=== PATIENT | female | born 1965 | race African-American/Black ===

== ENCOUNTER 2020-05-31 08:39 | Outpatient (REF) | payer OTHER, SELFPAY | END 2020-05-31 08:40 | disposition home or self-care (01) | LOC: HO.LAB 08:39 | PROVIDERS: Visit Provider Internal Medicine | DX: Z20.828 Contact with and (suspected) exposure to other viral communicable diseases (principal) | CPT/HCPCS: U0003 ==

== ENCOUNTER → 2020-09-15 14:52 | Outpatient (BNVA) | payer OTHER, SELFPAY | PROVIDERS: PCP Internal Medicine; Visit Provider Advanced Practice Midwife ==

== ENCOUNTER 2020-12-01 15:15 | Outpatient (REF) | payer OTHER, SELFPAY ==
--- NOTE | ~2020-12-01 | MM_ITS ---
EXAMINATION: MM SCREENING DIGITAL BREAST TOMOSYNTHESIS, BILATERAL CLINICAL INFORMATION: Screening. Asymptomatic. The lifetime risk of breast cancer based on the Tyrer-Cuzick Model is 6%. COMPARISON: Mammography: 06/10/2018, 12/26/2016, 10/24/2015 TECHNIQUE: Digital breast tomosynthesis is performed in both the craniocaudal and mediolateral oblique views along with computer-aided detection (CAD). Synthesized 2D images are generated from the tomosynthesis. FINDINGS: There are scattered areas of fibroglandular density (ACR BI-RADS breast composition Category b). There are no significant masses, abnormal calcifications, or other abnormalities. Parenchymal pattern is similar to prior studies. No significant changes. MM/MM tomosynthesis screening BI IMPRESSION: No mammographic evidence of malignancy. ASSESSMENT: BI-RADS 1: Negative RECOMMENDATION: Routine annual mammography screening. This patient's information was entered into a reminder system with a target due date for their next mammogram.
== END 2020-12-01 15:16 | disposition home or self-care (01) ==
LOC: HO.MAMMO 15:15
PROVIDERS: Absent Provider Nurse Practitioner Family; PCP Internal Medicine; Visit Provider Internal Medicine
DX: Z12.31 Encounter for screening mammogram for malignant neoplasm of breast (principal); E78.00 Pure hypercholesterolemia, unspecified; M79.622 Pain in left upper arm
CPT/HCPCS: 36415; 77063; 77067

== ENCOUNTER 2021-03-20 09:24 | Outpatient (REF) | payer OTHER, SELFPAY ==
[2021-03-20 10:53] LABS: Hematocrit 33.4 % (37-47); Mean Corpuscular HGB Conc 32.9 g/dl (31.0-35.0); Mean Corpuscular Hemoglobin 32.2 pg (27.0-33.0); Mean Corpuscular Volume 97.7 fL (80-98); Mean Platelet Volume 9.2 fL (9.4-12.3); Platelet Count 316 X10*3/uL (160-400); Red Blood Count 3.42 X10*6/uL (4.20-5.50); Red Cell Distribution Width 13.2 % (11.0-16.0); White Blood Count 6.4 X10*3/uL (4.8-10.8)
[2021-03-20 11:14] LABS: Alanine Aminotransferase 22 U/L (0-31); Albumin Level 4.2 g/dL (3.5-5.0); Alkaline Phosphatase 76 U/L (39-117); Anion Gap 16 (12-20); Aspartate Amino Transferase 28 U/L (5-31); Bilirubin Total 0.3 mg/dL (0.0-1.0); Blood Urea Nitrogen 13 mg/dL (9-16); Carbon Dioxide 21 mmol/L (22-29); Chloride 108 mmol/L (96-108); Cholesterol 275 mg/dL; Estimated Glomerular Filt Rate > 60; Glucose Fasting 93 mg/dL (60-99); HDL Cholesterol 64 mg/dL; Potassium 4.3 mmol/L (3.3-5.1); Sodium 141 mmol/L (135-145); Triglycerides 401 mg/dL
[2021-03-20 11:34] LABS: TSH reflex Free T4 0.58 uIU/mL (0.32-4.0)
== END 2021-03-20 09:25 | disposition home or self-care (01) ==
LOC: HO.LAB 09:24
PROVIDERS: PCP Internal Medicine; Visit Provider Physician Assistant
DX: I10 Essential (primary) hypertension (principal); E66.09 Other obesity due to excess calories; Z68.30 Body mass index [BMI] 30.0-30.9, adult
CPT/HCPCS: 36415; 80053; 80061; 84443; 85027

== ENCOUNTER 2021-04-25 | Outpatient (REF) | payer OTHER, SELFPAY | END 2021-04-25 00:01 | disposition home or self-care (01) | LOC: HO.LNP | PROVIDERS: Visit Provider Physician Assistant Medical | DX: Z20.822 Contact with and (suspected) exposure to COVID-19 (principal); R05 Cough; J44.1 Chronic obstructive pulmonary disease with (acute) exacerbation | CPT/HCPCS: U0003; U0005 ==

== ENCOUNTER 2021-04-25 15:39 | Outpatient (REF) | payer OTHER, SELFPAY ==
--- NOTE | ~2021-04-25 | XR_ITS ---
EXAMINATION: XR CHEST CLINICAL INFORMATION: COPD COMPARISON: Previous chest x-ray May 2017 TECHNIQUE: 2 views of the chest were obtained. FINDINGS: The cardiac and mediastinal contours are stable. The lungs are clear. There is no pleural effusion or pneumothorax. There is mild thoracolumbar scoliosis and degenerative changes of the spine. XR/XR chest 2V IMPRESSION: No evidence for acute disease in the chest.
== END 2021-04-25 15:40 | disposition home or self-care (01) ==
LOC: HO.HMGCX 15:39
PROVIDERS: PCP Internal Medicine; Visit Provider Internal Medicine
DX: Z13.89 Encounter for screening for other disorder (principal)
CPT/HCPCS: 71046

== ENCOUNTER → 2021-05-01 15:18 | Outpatient (BNVA) | payer OTHER, SELFPAY | PROVIDERS: PCP Internal Medicine; Visit Provider Internal Medicine | DX: G47.33 Obstructive sleep apnea (adult) (pediatric) (principal); J44.1 Chronic obstructive pulmonary disease with (acute) exacerbation; F17.200 Nicotine dependence, unspecified, uncomplicated | CPT/HCPCS: 99212 ==

== ENCOUNTER 2021-05-07 07:15 | Emergency (ER) | payer OTHER, SELFPAY ==
--- NOTE | ~2021-05-07 | CT_ITS ---
EXAMINATION: CT ABDOMEN AND PELVIS WITH CONTRAST CLINICAL INFORMATION: Left lower quadrant pain COMPARISON: None TECHNIQUE: Multidetector volumetric images were obtained from the superior aspect of the liver through the pubic symphysis following administration 85 mL of Omnipaque 350 intravenous contrast. Sagittal and coronal reformatted images were obtained on the technologist's workstation. Oral contrast: No This CT examination was performed using dose optimization techniques as appropriate, variously including the following: *Automated exposure control *Adjustment of mA and/or kV according to patient size (this includes techniques or standardized protocols for targeted exams where dose is matched to indication/reason for exam; i.e. extremities or head) *Use of iterative reconstruction technique DLP: 514 mGy-cm FINDINGS: LUNG BASES: There is minimal bilateral lower lobe atelectasis and/or scarring. Nonspecific right anterior pericardial 5 mm lymph nodes seen. LIVER, GALLBLADDER, AND BILIARY TREE: The liver is normal in size, shape, and attenuation. No focal hepatic lesion or biliary ductal dilatation is present. The gallbladder is unremarkable with no evidence of radiopaque gallstones, gallbladder wall thickening, or obvious pericholecystic inflammatory changes. PANCREAS: Unremarkable. SPLEEN: Unremarkable. ADRENAL GLANDS: There is a 2.6 x 2.3 cm lesion left adrenal gland measuring fluid density likely cyst benign adenoma or cyst. The right adrenal gland is unremarkable. KIDNEYS AND URETERS: The kidneys are normal in size, shape, and attenuation. No hydronephrosis, hydroureter, or calculi seen. No perinephric stranding. BLADDER: Unremarkable. GASTROINTESTINAL TRACT: There is scattered stool, diverticuli and gas seen throughout the colon. There is mild mural thickening involving the sigmoid colon best visualized on the sagittal image 54/6 and axial image 59/3. Question underlying sigmoid lesion or early diverticulitis. There is mild fatty haziness in the pelvis. No free air or free fluid. Appendix is normal caliber. The small bowel loops are normal caliber. The stomach is nondistended. An 8 mm partially calcified nodule adjacent to the round ligament image 63/3 question focal fat necrosis or lymph node. ABDOMINAL WALL: A small lacunar hernia containing fat is noted. LYMPH NODES: No obvious lymph nodes seen. Mild round nodule adjacent round ligament and the right uterus question fat necrosis versus small lymph node axial image 63/3. VASCULAR: Unremarkable. PELVIC VISCERA: The uterus is anteverted. There is a hypodense 2.4 x 1.10 cm lesion along the anterior fundal uterus likely fibroid. OSSEOUS STRUCTURES: There is mild ventral spondylosis. No lytic or sclerotic process seen. CT/CT abdomen pelvis w con IMPRESSION: Mild to moderate constipation. Mild circumferential mural thickening involving the sigmoid colon suspicious for underlying lesion or inflammatory changes, diverticulitis versus colitis. There are scattered diverticuli seen throughout the sigmoid and rest of the colon. No obstruction, free air or free fluid. Small round lesion with partial calcified marshall question fat necrosis versus small lymph node. Left adrenal benign adenoma or cyst. Normal appendix.
[2021-05-07 07:51] VITALS: BP 101/82; PULSE 92; RESP 16; TEMP 37.1; O2SAT 96; BMI 32.3
--- NOTE | 2021-05-07 08:18 | ED_ITS ---
HPI - Abdominal Pain General Chief Complaint: Abdominal Pain Stated Complaint: constipated Time Seen by Provider: 05/07/21 08:03 Source: patient History of Present Illness HPI narrative: Patient describes 1 week of lower abdominal discomfort with constipation. She states she has been passing small amounts of yellowish mucus but no diarrhea. No nausea vomiting. No fevers or chills. She has never had anything like this before. Pain is worse on the left than the right. No blood in her stools. No causative factors that she can think of No recent changes in diet or medication. Related Data Previous Rx's Medication Instructions Recorded docusate sodium 100 mg capsule 100 mg PO DAILY PRN 90 Days #90 cap 05/02/20 cholecalciferol (vitamin D3) 25 25 mcg PO DAILY 90 Days #90 cap 08/19/20 mcg (1,000 unit) capsule cyclobenzaprine 10 mg tablet 10 mg PO BEDTIME PRN 30 Days #30 11/09/20 tab gabapentin 600 mg tablet 600 mg PO TID #270 tab 12/14/20 polyethylene glycol 3350 17 17 g PO DAILY #238 g 12/14/20 gram/dose oral powder (Miralax) lactulose 10 gram/15 mL oral 10 g PO BEDTIME PRN 15 Days #225 ml 01/09/21 solution acetaminophen 650 mg 1,300 mg PO Q8H PRN #90 tab 04/02/21 tablet,extended release escitalopram oxalate 20 mg tablet 20 mg PO DAILY #15 tab 04/02/21 ibuprofen 800 mg tablet 800 mg PO TID PRN 30 Days #90 tab 04/16/21 amlodipine 10 mg tablet 10 mg PO DAILY 90 Days #90 tab 04/18/21 atorvastatin 80 mg tablet 80 mg PO BEDTIME 90 Days #90 tab 04/18/21 fenofibrate 54 mg tablet 54 mg PO DAILY 90 Days #90 tab 04/18/21 omeprazole 20 mg capsule,delayed 20 mg PO DAILY 90 Days #90 cap 04/18/21 release quetiapine 200 mg tablet 200 mg PO BEDTIME 90 Days #90 tab 04/18/21 ropinirole 1 mg tablet 1 mg PO BEDTIME 90 Days #90 tab 04/18/21 albuterol sulfate 90 mcg/actuation 2 puff INHALATION Q6H PRN 30 Days 05/05/21 aerosol inhaler #6.7 g fluticasone propionate 100 1 inh INHALATION BID #60 ea 05/05/21 mcg/actuation blister powder for inhalation (Flovent Diskus) amoxicillin 875 mg-potassium 1 tab PO BID #20 tab 05/07/21 clavulanate 125 mg tablet (Augmentin) magnesium citrate 150 ml PO DAILY #296 ml 05/07/21 Allergies Allergy/AdvReac Type Severity Reaction Status Date / Time No Known Allergies Allergy Verified 05/01/21 15:31 Review of Systems Constitutional: Denies fatigue and Denies fever(s) Cardiovascular: Denies chest pain and Denies dyspnea Respiratory: Denies dyspnea Comments: As per HPI Comments: No dysuria, hesitancy, frequency Endocrine: Denies fatigue Physical Exam Vital Signs: Vital Signs: Last Vital Signs Temp 98.8 F 05/07/21 07:51 Pulse 92 05/07/21 07:51 Resp 16 05/07/21 07:51 BP 101/82 05/07/21 07:51 Pulse Ox 96 05/07/21 07:51 Body Mass Index 32.3 Const: Other: Awake alert no acute distress Resp: Other: Clear and equal bilaterally Cardio: Other: Regular rate and rhythm GI: Other: Low abdominal mild tenderness to palpation, left lower quadrant greater than right lower quadrant. No guarding or rebound. Abdomen is soft. Mildly distended Skin: Other: Warm pink and dry Neuro: Other: Awake and alert with no obvious focal deficit Course Course Course Narrative: Abdominal pain Diverticulitis Constipation Colitis Lab work is reassuring. CT scan shows sigmoid dural thickening consistent with probable diverticulitis or colitis. Although neoplasm not excluded. Will discharge home on Augmentin with GI follow-up MDM - Abdominal Pain Lab Data Result diagrams: 05/07/21 08:58 05/07/21 08:58 Labs: Lab Results 05/07/21 05/07/21 05/07/21 Range/Units 08:58 08:58 08:58 WBC 6.2 (4.8-10.8) X10*3/uL RBC 3.23 L (4.20-5.50) X10*6/uL Hgb 10.7 L (12.0-16.0) g/dl Hct 31.0 L (37-47) % MCV 96.0 (80-98) fL MCH 33.1 H (27.0-33.0) pg MCHC 34.5 (31.0-35.0) g/dl RDW 13.2 (11.0-16.0) % Plt Count 379 (160-400) X10*3/uL MPV 8.8 L (9.4-12.3) fL Immature Gran % (Auto) 0.3 (0.0-0.4) % Neut % (Auto) 57.3 (45-73) % Lymph % (Auto) 31.3 (20-40) % Schuyler % (Auto) 8.3 (2-11) % Eos % (Auto) 2.3 (0-4) % Baso % (Auto) 0.5 (0-2) % Lymph # (Auto) 1.9 (1.2-4.9) X10*3/uL Schuyler # (Auto) 0.5 (0.1-1.2) X10*3/uL Eos # (Auto) 0.1 (0.0-0.4) X10*3/uL Baso # (Auto) 0.0 (0.0-0.2) X10*3/uL Abs Immat Gran (auto) 0.02 (0.00-0.03) X10*3/uL Absolute Neuts (auto) 3.5 (2.0-8.3) X10*3/uL Absolute Nucleated RBC 0.000 (0.0-0.012) X10*3/uL Nucleated RBC % (auto) 0.0 (0.0-0.2) /100WBC Sodium 142 (135-145) mmol/L Potassium 3.1 L D (3.3-5.1) mmol/L Chloride 108 (96-108) mmol/L Carbon Dioxide 22 (22-29) mmol/L Anion Gap 15 (12-20) BUN 9 (9-16) mg/dL Creatinine 0.81 (0.5-1.4) mg/dL Estim Creat Clear Calc 68.0 Estimated GFR > 60 Random Glucose 80 (60-115) mg/dL Lactic Acid 1.5 (0.5-2.0) mmol/L Calcium 8.7 (8.4-10.2) mg/dL Total Bilirubin 0.2 (0.0-1.0) mg/dL AST 31 (5-31) U/L ALT 22 (0-31) U/L Alkaline Phosphatase 78 (39-117) U/L Total Protein 6.8 (6.5-8.0) g/dL Albumin 4.0 (3.5-5.0) g/dL Lipase 28 (8-78) U/L TSH 0.33 (0.32-4.0) uIU/mL Discharge Plan Discharge Clinical Impression: Diverticulitis Patient Disposition: Home, Self-Care Instructions: Diverticulitis (ED) Prescriptions: New amoxicillin-pot clavulanate [Augmentin] 875-125 mg tablet 1 tab PO BID Qty: 20 RF: 0 magnesium citrate Solution 150 ml PO DAILY Qty: 296 RF: 0 No Action docusate sodium 100 mg capsule 100 mg PO DAILY PRN (Reason: constipation) 90 Days Qty: 90 RF: 3 cholecalciferol (vitamin D3) 25 mcg (1,000 unit) capsule 25 mcg PO DAILY 90 Days Qty: 90 RF: 3 cyclobenzaprine 10 mg tablet 10 mg PO BEDTIME PRN (Reason: muscle spasm) 30 Days Qty: 30 RF: 6 polyethylene glycol 3350 [Miralax] 17 gram/dose powder 17 g PO DAILY Qty: 238 RF: 3 gabapentin 600 mg tablet 600 mg PO TID Qty: 270 RF: 2 escitalopram oxalate 20 mg tablet 20 mg PO DAILY Qty: 15 RF: 3 acetaminophen 650 mg tablet extended release 1,300 mg PO Q8H PRN (Reason: for fever) Qty: 90 RF: 6 ibuprofen 800 mg tablet 800 mg PO TID PRN (Reason: fever or pain) 30 Days Qty: 90 RF: 6 albuterol sulfate 90 mcg/actuation HFA aerosol inhaler 2 puff inhalation Q6H PRN (Reason: shortness of breath or wheezing) 30 Days Qty: 6.7 RF: 0 Flovent Diskus 100 mcg/actuation blister with device 1 inh inhalation BID Qty: 60 RF: 3 atorvastatin 80 mg tablet 80 mg PO BEDTIME 90 Days Qty: 90 RF: 1 fenofibrate 54 mg tablet 54 mg PO DAILY 90 Days Qty: 90 RF: 1 amlodipine 10 mg tablet 10 mg PO DAILY 90 Days Qty: 90 RF: 1 omeprazole 20 mg capsule,delayed release(DR/EC) 20 mg PO DAILY 90 Days Qty: 90 RF: 1 ropinirole 1 mg tablet 1 mg PO BEDTIME 90 Days Qty: 90 RF: 1 quetiapine 200 mg tablet 200 mg PO BEDTIME 90 Days Qty: 90 RF: 1 lactulose 10 gram/15 mL solution 10 g PO BEDTIME PRN (Reason: constipation) 15 Days Qty: 225 RF: 0 PMFSH Past Medical History Medical History Alcoholism Breast cancer screening by mammogram Constipation by delayed colonic transit SHARRON (generalized anxiety disorder) GERD (gastroesophageal reflux disease) Hypovitaminosis D 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 Mother Stroke Diabetes Substance use disorder Social History Social History Housing: Apartment Alcohol intake: current Alcohol intake frequency: 0-2 drinks per day Alcohol type: beer and hard liquor Patient Tobacco Use Status: Current everyday Tobacco user Tobacco use type: Cigarette Cigarettes Per Day: 10 e-Cigarette/Vaping Use: Never Used Second Hand Smoke Exposure: No Use of substances other than those prescribed or required for medical reasons: No Advance Directives: No service: No Current occupational status: employed Current occupational exposures/hazards: No Gender identity: Female
[2021-05-07] MEDS: 0.9 % Sodium Chloride 500 ML IV (08:59)
[2021-05-07] MEDS: Ketorolac Tromethamine 15 MG/ML VIAL 30 MG IVPUSH (08:59)
[2021-05-07 09:04] LABS: MANUAL DIFF FLAG NO
[2021-05-07 09:06] LABS: Basophils Percent Auto 0.5 % (0-2); Eosinophils Absolute Auto 0.1 X10*3/uL (0.0-0.4); Eosinophils Percent Auto 2.3 % (0-4); Hemoglobin 10.7 g/dl (12.0-16.0); Imm Gran Abs Auto 0.02 X10*3/uL (0.00-0.03); Imm Gran Pct Auto 0.3 % (0.0-0.4); Lymphocytes Absolute Auto 1.9 X10*3/uL (1.2-4.9); Lymphocytes Percent Auto 31.3 % (20-40); Mean Corpuscular HGB Conc 34.5 g/dl (31.0-35.0); Mean Corpuscular Hemoglobin 33.1 pg (27.0-33.0); Mean Platelet Volume 8.8 fL (9.4-12.3); Monocytes Absolute Auto 0.5 X10*3/uL (0.1-1.2); Monocytes Percent Auto 8.3 % (2-11); Neutrophils Absolute Auto 3.5 X10*3/uL (2.0-8.3); Neutrophils Percent Auto 57.3 % (45-73); Platelet Count 379 X10*3/uL (160-400); Red Blood Count 3.23 X10*6/uL (4.20-5.50); Red Cell Distribution Width 13.2 % (11.0-16.0); White Blood Count 6.2 X10*3/uL (4.8-10.8)
[2021-05-07 09:27] LABS: Alanine Aminotransferase 22 U/L (0-31); Alkaline Phosphatase 78 U/L (39-117); Anion Gap 15 (12-20); Aspartate Amino Transferase 31 U/L (5-31); Bilirubin Total 0.2 mg/dL (0.0-1.0); Blood Urea Nitrogen 9 mg/dL (9-16); Calcium 8.7 mg/dL (8.4-10.2); Carbon Dioxide 22 mmol/L (22-29); Chloride 108 mmol/L (96-108); Estimated Glomerular Filt Rate > 60; Glucose Random 80 mg/dL (60-115); Lipase 28 U/L (8-78); Potassium 3.1 mmol/L (3.3-5.1); Sodium 142 mmol/L (135-145); Total Protein 6.8 g/dL (6.5-8.0)
[2021-05-07 09:31] LABS: Lactic Acid 1.5 mmol/L (0.5-2.0)
[2021-05-07 09:48] LABS: TSH reflex Free T4 0.33 uIU/mL (0.32-4.0)
[2021-05-07] MEDS: iohexoL 350 MG/ML 100 ML INFUS..BTL 85 ML IV (10:37)
[2021-05-07] MEDS: Amoxicillin/Potassium Clav 875 MG TABLET PO (12:42)
[2021-05-07 12:43] VITALS: BP 124/83; PULSE 92; RESP 16; O2SAT 96
== END 2021-05-07 12:22 | disposition home or self-care (01) ==
PROVIDERS: Emergency Provider Emergency Medicine; PCP Internal Medicine
DX: K57.92 Diverticulitis of intestine, part unspecified, without perforation or abscess without bleeding (principal)
CPT/HCPCS: 36415; 74177; 80053; 83605; 83690; 84443; 85025; 96361; 96374; 99284; J1885; Q9967

== ENCOUNTER → 2021-05-29 15:13 | Outpatient (BNVA) | payer OTHER, SELFPAY | PROVIDERS: PCP Internal Medicine; Visit Provider Internal Medicine | DX: J44.9 Chronic obstructive pulmonary disease, unspecified (principal); G47.33 Obstructive sleep apnea (adult) (pediatric); F17.200 Nicotine dependence, unspecified, uncomplicated | CPT/HCPCS: 99212 ==

== ENCOUNTER 2021-07-23 08:12 | Emergency (ER) | payer OTHER, SELFPAY ==
--- NOTE | ~2021-07-23 | XR_ITS ---
EXAMINATION: XR KNEE, LEFT CLINICAL INFORMATION: Pain COMPARISON: May 01, 2018 TECHNIQUE: Four views of the left knee. FINDINGS: There is no evidence of acute fracture or dislocation. Joint spaces are maintained. No left knee effusion is seen. There is some spurring undersurface of the patella. There is a patella spur site of insertion of the quadriceps tendon. There is evidence of old medial collateral ligament injury about the medial distal femur. This is unchanged. XR/XR knee LT 3V IMPRESSION: Patellofemoral joint degenerative spurring. No fracture or effusion.
--- NOTE | 2021-07-23 13:37 | ED.LOWEXIN ---
HPI - Extremity Injury (Lower) General Chief Complaint: Extremity Injury, Lower Stated Complaint: L knee pain Time Seen by Provider: 07/23/21 13:37 Source: patient Mode of arrival: ambulatory Limitations: no limitations History of Present Illness complaint: knee injury Onset (ago): day(s) (2) Injury: Left: knee Type of Injury: blunt and other Place: home Severity: moderate Relieving factors: nothing Exacerbating factors: weight bearing and palpation Context: direct blow Associated symptoms: swelling Other symptoms: other (swells at times, on her feet for long time at work) Related Data Previous Rx's Medication Instructions Recorded cholecalciferol (vitamin D3) 25 25 mcg PO DAILY 90 Days #90 cap 08/19/20 mcg (1,000 unit) capsule cyclobenzaprine 10 mg tablet 10 mg PO BEDTIME PRN 30 Days #30 11/09/20 tab gabapentin 600 mg tablet 600 mg PO TID #270 tab 12/14/20 polyethylene glycol 3350 17 17 g PO DAILY #238 g 12/14/20 gram/dose oral powder (Miralax) lactulose 10 gram/15 mL oral 10 g (15 mL) PO BEDTIME PRN 15 01/09/21 solution Days #225 ml acetaminophen 650 mg 1,300 mg PO Q8H PRN #90 tab 04/02/21 tablet,extended release escitalopram oxalate 20 mg tablet 20 mg PO DAILY #15 tab 04/02/21 ibuprofen 800 mg tablet 800 mg PO TID PRN 30 Days #90 tab 04/16/21 amlodipine 10 mg tablet 10 mg PO DAILY 90 Days #90 tab 04/18/21 atorvastatin 80 mg tablet 80 mg PO BEDTIME 90 Days #90 tab 04/18/21 fenofibrate 54 mg tablet 54 mg PO DAILY 90 Days #90 tab 04/18/21 omeprazole 20 mg capsule,delayed 20 mg PO DAILY 90 Days #90 cap 04/18/21 release quetiapine 200 mg tablet 200 mg PO BEDTIME 90 Days #90 tab 04/18/21 ropinirole 1 mg tablet 1 mg PO BEDTIME 90 Days #90 tab 04/18/21 albuterol sulfate 90 mcg/actuation 2 puff INHALATION Q6H PRN 30 Days 05/05/21 aerosol inhaler #6.7 g fluticasone propionate 100 1 inh INHALATION BID #60 ea 05/05/21 mcg/actuation blister powder for inhalation (Flovent Diskus) amoxicillin 875 mg-potassium 1 tab PO BID #20 tab 05/07/21 clavulanate 125 mg tablet (Augmentin) magnesium citrate 150 ml PO DAILY #296 ml 05/07/21 docusate sodium 100 mg capsule 100 mg PO DAILY PRN 90 Days #90 cap 05/30/21 prednisone 10 mg tablet 10 mg PO DAILY 5 Days #5 tab 07/23/21 Allergies Allergy/AdvReac Type Severity Reaction Status Date / Time No Known Allergies Allergy Verified 05/29/21 15:19 Review of Systems Review of Systems: Constitutional : No Fever, No Chills ENT/Mouth : No Ear Pain, No Hoarseness, No sore throat Eyes: No Eye Pain, No Swelling, No Redness, No Foreign Body Cardiovascular : No Chest Pain, No SOB Respiratory : No Cough, No Dyspnea Gastrointestinal : No Nausea, No Vomiting, No Diarrhea, No abdominal Pain Genitourinary : No Dysuria, No Hematuria Musculoskeletal : positive joint pain, No Myalgias, pos Joint Swelling Skin : No Skin lacerations, No rash Neuro : No Weakness, No Numbness, No Loss of Consciousness, No Dizziness, No Headache Psych : No Anxiety/Panic, No Depression PMFSH Past Medical History Attestation statement: The following information was validated with the patient. 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 Mother Stroke Diabetes Substance use disorder Social History Social History Housing: Apartment Alcohol intake: current Alcohol intake frequency: 0-2 drinks per day Alcohol type: beer and hard liquor Patient Tobacco Use Status: Current everyday Tobacco user Tobacco use type: Cigarette Cigarettes Per Day: 10 e-Cigarette/Vaping Use: Never Used Second Hand Smoke Exposure: No Advance Directives: No Advance Directives Information Provided: Yes service: No Current occupational status: employed Current occupational exposures/hazards: No Gender identity: Female Physical Exam Vital Signs: Appearance: Alert. Oriented X3. No acute distress. Eyes: Pupils equal, round and reactive to light. ENT: Pharynx normal. Neck: Normal inspection. Neck supple. CVS: Pulses normal. Respiratory: No respiratory distress. Abdomen: atraumatic Skin: Skin warm and dry. Normal skin color. Extremities: No lower extremity edema. L knee no effusion distal NV intact, normal skin - multiple old scars from falls denies surgery ttp along medial meniscus line + pain with compression and rotation otherwise no laxity felt Neuro: Oriented X 3. No motor deficit. No sensory deficit. MDM - Extremity Injury (Lower) MDM Narrative Medical decision making narrative: 56 yo female hx of L knee pain no DM - fell recently x 2 mechanical in nature at this time has L knee pain distal NV intact xrays show old injuries she has ttp along the medial meniscus and + clicking with walking as well as + apley's compression test she notes repeat bouts of effusion at home does not have one here, cannot take time off of work will place in immobilizer offered low dose steroids for pain/inflammation/swelling Procedures Orthopedic Splinting/Casting Injury #1: Side: left Lower Extremity Injury Location: knee Lower Extremity Immobilizer: knee immobilizer Discharge Plan Discharge Clinical Impression: Internal derangement of knee, acute Patient Disposition: Home, Self-Care Instructions: Knee Sprain (ED), Knee Immobilizer (ED) Additional Instructions: return to ED for any worsening symptoms or concerns exam concerning for injury to either ligament or meniscus (cartilage to the knee given her history) please wear brace for comfort you may need MRI if this persists wear immobilizer for the next week for comfort please follow up with your doctor low dose steroids for intermittent swelling Prescriptions: New prednisone 10 mg tablet 10 mg PO DAILY 5 Days Qty: 5 RF: 0 No Action cholecalciferol (vitamin D3) 25 mcg (1,000 unit) capsule 25 mcg PO DAILY 90 Days Qty: 90 RF: 3 cyclobenzaprine 10 mg tablet 10 mg PO BEDTIME PRN (Reason: muscle spasm) 30 Days Qty: 30 RF: 6 polyethylene glycol 3350 [Miralax] 17 gram/dose powder 17 g PO DAILY Qty: 238 RF: 3 gabapentin 600 mg tablet 600 mg PO TID Qty: 270 RF: 2 escitalopram oxalate 20 mg tablet 20 mg PO DAILY Qty: 15 RF: 3 acetaminophen 650 mg tablet extended release 1,300 mg PO Q8H PRN (Reason: for fever) Qty: 90 RF: 6 ibuprofen 800 mg tablet 800 mg PO TID PRN (Reason: fever or pain) 30 Days Qty: 90 RF: 6 albuterol sulfate 90 mcg/actuation HFA aerosol inhaler 2 puff inhalation Q6H PRN (Reason: shortness of breath or wheezing) 30 Days Qty: 6.7 RF: 0 Flovent Diskus 100 mcg/actuation blister with device 1 inh inhalation BID Qty: 60 RF: 3 docusate sodium 100 mg capsule 100 mg PO DAILY PRN (Reason: constipation) 90 Days Qty: 90 RF: 3 amoxicillin-pot clavulanate [Augmentin] 875-125 mg tablet 1 tab PO BID Qty: 20 RF: 0 magnesium citrate Solution 150 ml PO DAILY Qty: 296 RF: 0 atorvastatin 80 mg tablet 80 mg PO BEDTIME 90 Days Qty: 90 RF: 1 fenofibrate 54 mg tablet 54 mg PO DAILY 90 Days Qty: 90 RF: 1 amlodipine 10 mg tablet 10 mg PO DAILY 90 Days Qty: 90 RF: 1 omeprazole 20 mg capsule,delayed release(DR/EC) 20 mg PO DAILY 90 Days Qty: 90 RF: 1 ropinirole 1 mg tablet 1 mg PO BEDTIME 90 Days Qty: 90 RF: 1 quetiapine 200 mg tablet 200 mg PO BEDTIME 90 Days Qty: 90 RF: 1 lactulose 10 gram/15 mL solution 10 g PO BEDTIME PRN (Reason: constipation) 15 Days Qty: 225 RF: 0 Referrals: Ioana Kimball PA-C [[facility]] - 1 week
[2021-07-23 14:07] VITALS: BP 142/78; O2SAT 97; BMI 30.9
== END 2021-07-23 14:19 | disposition home or self-care (01) ==
PROVIDERS: Emergency Provider Emergency Medicine; PCP Internal Medicine
DX: M23.92 Unspecified internal derangement of left knee (principal); M25.562 Pain in left knee; F17.200 Nicotine dependence, unspecified, uncomplicated; I10 Essential (primary) hypertension; E78.2 Mixed hyperlipidemia; F10.20 Alcohol dependence, uncomplicated; B19.20 Unspecified viral hepatitis C without hepatic coma; Z79.02 Long term (current) use of antithrombotics/antiplatelets
CPT/HCPCS: 73562; 99282; 99283

== ENCOUNTER 2021-08-15 08:19 | Outpatient (REF) | payer OTHER, SELFPAY | END 2021-08-15 08:20 | disposition home or self-care (01) | LOC: HO.HOSX 08:19 | PROVIDERS: Visit Provider Physician Assistant | DX: Z13.89 Encounter for screening for other disorder (principal) ==

== ENCOUNTER → 2021-08-24 15:20 | Outpatient (BNVA) | payer OTHER, SELFPAY | PROVIDERS: PCP Internal Medicine; Referring Provider Internal Medicine; Visit Provider Nurse Practitioner | DX: Z12.11 Encounter for screening for malignant neoplasm of colon (principal); B19.20 Unspecified viral hepatitis C without hepatic coma | CPT/HCPCS: 99202 ==

== ENCOUNTER 2021-08-31 17:52 | Outpatient (REF) | payer OTHER, SELFPAY ==
--- NOTE | ~2021-08-31 | MR_ITS ---
EXAMINATION: MR KNEE WITHOUT CONTRAST, LEFT CLINICAL INFORMATION: Left knee pain and swelling. Medial knee pain. COMPARISON: Left knee radiographs dated 07/23/2021. TECHNIQUE: MRI of the knee without contrast was performed using routine sequences on a high-field scanner. FINDINGS: MENISCI: Medial Meniscus: Inner margin blunting and irregularity of the posterior meniscal body and posterior horn with a medially displaced meniscal flap measuring up to 1.7 cm in AP dimension. Mild adjacent soft tissue edema. Lateral Meniscus: Intact LIGAMENTS: Cruciate: Intact Collateral: Intact EXTENSOR MECHANISM: Intact ARTICULAR CARTILAGE/BONE: Patellofemoral Compartment: Central and medial trochlear articular cartilage signal heterogeneity and surface irregularity. Medial patellar articular cartilage thinning. Tiny marginal osteophytes. Medial Compartment: Mild weightbearing articular cartilage thinning with signal heterogeneity and surface irregularity. Small marginal osteophytes. Mild marrow edema within the medial femoral condyle, consistent with an osseous contusion. Lateral Compartment: Normal. JOINT FLUID AND BURSAE: [id number] joint effusion. MR/MR knee LT wo con IMPRESSION: 1. Inner margin tearing of the posterior meniscal body and posterior horn with a medially displaced meniscal flap measuring up to 1.7 cm in AP dimension. Mild adjacent soft tissue edema. Mild underlying osseous contusion within the medial femoral condyle. No fracture. 2. Mild patellofemoral and medial compartment osteoarthritis. Small to moderate joint effusion.
== END 2021-08-31 17:53 | disposition home or self-care (01) ==
LOC: HO.MRI 17:52
PROVIDERS: Visit Provider Physician Assistant
DX: S83.207A Unspecified tear of unspecified meniscus, current injury, left knee, initial encounter (principal)
CPT/HCPCS: 73721

== ENCOUNTER 2021-10-27 10:24 | Outpatient (REF) | payer OTHER, SELFPAY ==
[2021-10-27 10:51] LABS: MANUAL DIFF FLAG NO
[2021-10-27 10:58] LABS: Basophils Percent Auto 0.4 % (0-2); Eosinophils Absolute Auto 0.1 X10*3/uL (0.0-0.4); Eosinophils Percent Auto 1.3 % (0-4); Hematocrit 34.8 % (37.0-47.0); Hemoglobin 11.4 g/dl (12.0-16.0); Imm Gran Abs Auto 0.02 X10*3/uL (0.00-0.03); Imm Gran Pct Auto 0.3 % (0.0-0.4); Lymphocytes Absolute Auto 2.3 X10*3/uL (1.2-4.9); Lymphocytes Percent Auto 31.5 % (20-40); Mean Corpuscular HGB Conc 32.8 g/dl (31.0-35.0); Mean Corpuscular Hemoglobin 31.4 pg (27.0-33.0); Mean Corpuscular Volume 95.9 fL (80.0-98.0); Monocytes Absolute Auto 0.4 X10*3/uL (0.1-1.2); Monocytes Percent Auto 6.2 % (2-11); Neutrophils Absolute Auto 4.3 x10*3/uL (2.0-8.3); Neutrophils Percent Auto 60.3 % (45-73); Platelet Count 401 X10*3/uL (160-400); Red Blood Count 3.63 X10*6/uL (4.20-5.50); Red Cell Distribution Width 12.7 % (11.0-16.0); White Blood Count 7.1 X10*3/uL (4.8-10.8)
[2021-10-27 11:32] LABS: Alanine Aminotransferase 12 U/L (0-31); Albumin Level 4.4 g/dL (3.5-5.0); Alkaline Phosphatase 67 U/L (39-117); Anion Gap 14 (12-20); Aspartate Amino Transferase 18 U/L (5-31); Bilirubin Total 0.3 mg/dL (0.0-1.0); Blood Urea Nitrogen 15 mg/dL (9-16); Calcium 9.9 mg/dL (8.4-10.2); Carbon Dioxide 23 mmol/L (22-29); Chloride 108 mmol/L (96-108); Cholesterol 253 mg/dL; Estimated Glomerular Filt Rate 49; Glucose Fasting 99 mg/dL (60-99); HDL Cholesterol 57 mg/dL; LDL Cholesterol Calculated 140 mg/dl; Potassium 3.9 mmol/L (3.3-5.1); Sodium 141 mmol/L (135-145); Total Protein 7.6 g/dL (6.5-8.0); Triglycerides 282 mg/dL
[2021-10-27 11:45] LABS: HBc Num1 0.06 S/CO (0.00-0.79); HIV AB/AG Nonreactive (Nonreactive); HIV Num 1 0.09 S/CO (0.00-0.99); Hepatitis B Core Antibody Nonreactive (Nonreactive)
[2021-10-27 11:52] LABS: HBS Num1 88.71 mIU/mL (0-7.99); ~Hepatitis B Surface Antibody REACTIVE (Nonreactive)
[2021-10-29 13:35] LABS: HCV RNA PCR Qn <1.18 NOT DETECTED Log IU/mL (NOT DETECTED); HCV RNA PCR Qn <15 NOT DETECTED IU/mL (NOT DETECTED)
[2021-10-31 15:46] LABS: Vitamin D 25-OH, D2 <4 ng/mL; Vitamin D 25-OH, D3 46 ng/mL; Vitamin D 25-OH, Total 46 ng/mL (30-100)
== END 2021-10-27 10:25 | disposition home or self-care (01) ==
LOC: HO.LAB 10:24
PROVIDERS: Nurse Practitioner; PCP Internal Medicine; Visit Provider Internal Medicine
DX: B19.20 Unspecified viral hepatitis C without hepatic coma (principal); E55.9 Vitamin D deficiency, unspecified; E78.5 Hyperlipidemia, unspecified; E78.2 Mixed hyperlipidemia; D64.9 Anemia, unspecified; J44.9 Chronic obstructive pulmonary disease, unspecified; Z12.11 Encounter for screening for malignant neoplasm of colon
CPT/HCPCS: 36415; 80053; 80061; 82306; 85025; 86704; 86706; 87389; 87522; 87902

== ENCOUNTER 2022-01-25 14:35 | Outpatient (REF) | payer OTHER, SELFPAY ==
--- NOTE | ~2022-01-25 | XR_ITS ---
EXAMINATION: XR KNEE AP STANDING XR KNEE, LEFT CLINICAL INFORMATION: Knee pain COMPARISON: Radiographs left knee 07/23/2021 and standing AP knees and left knee 05/01/2018 TECHNIQUE: Standing AP view of both knees is performed along with axial patella view left knee. FINDINGS: Left: Moderate narrowing medial knee joint compartment and mild narrowing patellofemoral joint. No erosive change or chondrocalcinosis. Normal bony mineralization. No fracture or destructive process. Small benign rectangular exostosis again seen proximal medial femoral condyle similar to prior studies, possibly at origin medial collateral ligament. There are fine osteophytes medial femoral condyle and tibial plateau. Right: Mild narrowing medial compartment with borderline marginal osteophyte medial femoral condyle. No erosive change or visible chondrocalcinosis. Normal bony mineralization. No fracture or destructive process. Small linear mineralization at origin medial collateral ligament similar to prior exam 2018. XR/XR knee LT 1V IMPRESSION: -Narrowing medial knee joint compartments, greater on left. -No erosive change or chondrocalcinosis. -Bilateral mineralization/ossification at origin medial collateral ligament.
--- NOTE | ~2022-01-25 | XR_ITS ---
EXAMINATION: XR KNEE AP STANDING XR KNEE, LEFT CLINICAL INFORMATION: Knee pain COMPARISON: Radiographs left knee 07/23/2021 and standing AP knees and left knee 05/01/2018 TECHNIQUE: Standing AP view of both knees is performed along with axial patella view left knee. FINDINGS: Left: Moderate narrowing medial knee joint compartment and mild narrowing patellofemoral joint. No erosive change or chondrocalcinosis. Normal bony mineralization. No fracture or destructive process. Small benign rectangular exostosis again seen proximal medial femoral condyle similar to prior studies, possibly at origin medial collateral ligament. There are fine osteophytes medial femoral condyle and tibial plateau. Right: Mild narrowing medial compartment with borderline marginal osteophyte medial femoral condyle. No erosive change or visible chondrocalcinosis. Normal bony mineralization. No fracture or destructive process. Small linear mineralization at origin medial collateral ligament similar to prior exam 2018. XR/XR knee standing BI IMPRESSION: -Narrowing medial knee joint compartments, greater on left. -No erosive change or chondrocalcinosis. -Bilateral mineralization/ossification at origin medial collateral ligament.
== END 2022-01-25 14:36 | disposition home or self-care (01) ==
LOC: HO.HOSX 14:35
PROVIDERS: Visit Provider Physician Assistant
DX: S83.207A Unspecified tear of unspecified meniscus, current injury, left knee, initial encounter (principal)
CPT/HCPCS: 73560; 73565; 99202

== ENCOUNTER 2022-03-14 09:55 | Day surgery (SDC) | payer OTHER, SELFPAY ==
[2022-03-07 15:27] VITALS: BMI 25.7
--- NOTE | 2022-03-13 12:07 | HO.ANESPROP2 ---
Documented by User: Geeta Napier NP 03/13/22 12:08 HPI - Anesthesia Eval Consult details Narrative: 56yo F for Left Knee Arthroscopy daily ETOH PMFSH Active Problems Active Problems: All Active Problems (Updated 01/25/22 @ 14:51 by Kathy Iyer) Tear of meniscus of left knee (Acute) Anemia (Acute) Right upper quadrant abdominal pain (Acute) Tear of left meniscus as current injury (Acute) COPD (chronic obstructive pulmonary disease) (Acute) Smoker (Acute) COPD exacerbation (Acute) Cough (Acute) GERD (gastroesophageal reflux disease) (Acute) SHARRON (generalized anxiety disorder) (Acute) Mild recurrent major depression (Acute) 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 (Acute) Alcoholism (Acute) Mixed hyperlipidemia (Acute) HTN (hypertension) (Acute) Menopause (Acute) MARIEL (obstructive sleep apnea) (Acute) Obese (Acute) Hepatitis C (Acute) Colon cancer screening (Acute) Well woman exam with routine gynecological exam (Acute) High blood cholesterol (Acute) Breast cancer screening by mammogram (Acute) Pain in left axilla (Acute) Hypovitaminosis D (Acute) Constipation by delayed colonic transit (Acute) Past Medical History Medical History Alcoholism Anemia Breast cancer screening by mammogram Constipation by delayed colonic transit COPD (chronic obstructive pulmonary disease) SHRARON (generalized anxiety disorder) GERD (gastroesophageal reflux disease) Hypovitaminosis D 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 Mother Stroke Diabetes Substance use disorder Surgical History Surgical History History of section History of foot surgery Social History Social History Housing: Apartment Alcohol intake: current Alcohol intake frequency: a few times a week Alcohol type: beer and hard liquor Patient Tobacco Use Status: Current everyday Tobacco user Tobacco use type: Cigarette Cigarettes Per Day: 4 e-Cigarette/Vaping Use: Never Used Second Hand Smoke Exposure: No service: No Current occupational status: employed Current occupational exposures/hazards: No Gender identity: Female Meds Allergies Allergy/AdvReac Type Severity Reaction Status Date / Time No Known Allergies Allergy Verified 03/12/22 13:26 Exam Exam Date and Time: March 13, 2022 1207 Height,Weight and Vital Signs: Height 5 ft 3 in Weight 65.771 kg Pertinent Lab Results Pertinent Lab Results: Laboratory Tests 10/27/21 10/27/21 10:47 10:47 WBC 7.1 Hgb 11.4 L Hct 34.8 L Plt Count 401 H Sodium 141 Potassium 3.9 D Chloride 108 Carbon Dioxide 23 BUN 15 Creatinine 1.16 Assessment and Plan Assessment Anesthesia Assessment: Chart Reviewed Documented by User: Carlyle Santana MD 03/14/22 17:46 PMFSH Past Medical History Medical History Alcoholism Anemia Breast cancer screening by mammogram Constipation by delayed colonic transit COPD (chronic obstructive pulmonary disease) SHARRON (generalized anxiety disorder) GERD (gastroesophageal reflux disease) Hypovitaminosis D 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 Mother Stroke Diabetes Substance use disorder Family history of problems with anesthesia: No Surgical History Surgical History History of section History of foot surgery History of Problems with Anesthesia: No Social History Social History Housing: Apartment Alcohol intake: current Alcohol intake frequency: a few times a week Alcohol type: beer and hard liquor Patient Tobacco Use Status: Current everyday Tobacco user Tobacco use type: Cigarette Cigarettes Per Day: 4 e-Cigarette/Vaping Use: Never Used Second Hand Smoke Exposure: No service: No Current occupational status: employed Current occupational exposures/hazards: No Gender identity: Female Meds Allergies Allergy/AdvReac Type Severity Reaction Status Date / Time No Known Allergies Allergy Verified 03/12/22 13:26 Exam Airway Mallampati Class: III TM Dist: >3cm Neck ROM: Full Loose/Missing/Broken Teeth: Yes (Poor dentition ) Heart: S1,S2 Lungs: b/l breath sounds Assessment and Plan Assessment Anesthesia Assessment: Anesthesia Plan Discussed Final Anesthetic Review Family History of Problems with Anesthesia: No History of Problems with Anesthesia: No NPO: Yes ASA Class: III Final Preanesthetic Review: Meds/Allgs Chart Reviewed, Consent Obtained/Reviewed and Anes Risks/Benef Reviewed Patient Risk: Intermediate Procedure Risk: Intermediate Anesthetic Plan Anesthetic Plan: GA Disposition: Standard PACU
[2022-03-14 10:54] VITALS: BP 120/89; PULSE 79; RESP 19; TEMP 36.1; O2SAT 97
[2022-03-14] MEDS: Lactated Ringers 1,000 ML 100 ML IVCONT (11:26)
--- NOTE | 2022-03-14 13:09 | MHC.SHP ---
Pre-Procedural Eval Section A Date of Service: 03/14/22 The patient is an INPATIENT: No Changes since office visit: Yes Cold of Flu in the past 2 weeks, Yes New Medical Problems and Yes Changes in Medication The History & Physical has been completed within 30 days and I have reviewed it.: Yes Section B Chief Complaint: Unspecified tear of unspecified meniscus, current Allergies: Allergies Allergy/AdvReac Type Severity Reaction Status Date / Time No Known Allergies Allergy Verified 03/12/22 13:26 Plan I have reviewed the history and physical and performed a pertinent physical examination on my patient. No changes have occurred unless specified.
--- NOTE | 2022-03-14 14:51 | P.BOP_ITS ---
Brief Operative Note Date of Service: 03/14/22 Pre-op diagnosis: Left knee PF OA and MMT Post-op diagnosis: other (Left knee OA and MMT) Procedure: Medial meniscectomy and chondroplasty Surgeon: Yahir Howell MD Anesthesia: GETA and local Was an Machine Operations Supervisor used for this Procedure?: No Estimated blood loss (mL): 5 Tourniquet time (min): 12 IV fluids (mL): 500 Pathology: none sent Condition: stable Disposition: PACU
[2022-03-14 14:59] VITALS: BP 127/78; PULSE 86; RESP 16; TEMP 36.7; O2SAT 98
[2022-03-14 15:04] VITALS: BP 126/88; PULSE 76; RESP 18; O2SAT 98
[2022-03-14 15:09] VITALS: BP 128/83; PULSE 80; RESP 18; O2SAT 95
[2022-03-14 15:14] VITALS: BP 127/88; PULSE 83; RESP 18; TEMP 37.1; O2SAT 97
--- NOTE | 2022-03-23 17:00 | P.OP_ITS ---
Operative Note Operative Note Date of Service: 03/14/22 Narrative: Date of Service: 03/14/22 Pre-op diagnosis: Left knee PF OA and MMT Post-op diagnosis: other (Left knee OA and MMT) Procedure: Medial meniscectomy and chondroplasty Surgeon: Yahir Howell MD Anesthesia: GETA and local Was an Lidding Machine Operator used for this Procedure?: No Estimated blood loss (mL): 5 Tourniquet time (min): 12 IV fluids (mL): 500 Pathology: none sent Condition: stable Disposition: PACU Procedure in detail: Patient was brought to the operating room placed supine on the arthroscopic table and prepped and draped in standard sterile fashion. A time-out was called to identify proper site proper procedure proper surgeon and IV antibiotics per weight were administered. I began by exsanguinating the limb and insufflating tourniquet to 300 mm Hg. Then made a standard anterolateral stab incision. The knee was insufflated with water and 30 degree arthroscope was placed. There was grade 1 fibrillations of the patella but overall suprapatellar pouch and the gutters were clean. I descended into the medial compartment where I made my medial portal under direct visualization. There was obvious of complex tear of the body and posterior horn of the medial meniscus. Root was intact and there was grade 1 changes with some scattered grade 2 changes throughout the medial compartment. I used a combination of biter shaver and cautery to remove unstable portions of the meniscus. Approximately 40% meniscal volume was removed. Once I was happy with this the ACL was examined and found to be intact and the lateral compartment also was without the need for intervention. I then removed all instrumentation and closed the portals with skin glue. 25 mL of 2% Marcaine with epinephrine was injected into the joint and the surrounding soft tissues. Patient was then placed in sterile dressing extubated brought recovery room stable condition. There were no known complications.
== END 2022-03-14 16:05 | disposition home or self-care (01) ==
PROVIDERS: PCP Internal Medicine; Visit Provider Orthopaedic Surgery
PROC: (CPT 29870; principal; 2022-03-14 13:10)
DX: S83.242A Other tear of medial meniscus, current injury, left knee, initial encounter (principal); M17.12 Unilateral primary osteoarthritis, left knee; M25.562 Pain in left knee; W01.0XXA Fall on same level from slipping, tripping and stumbling without subsequent striking against object, initial encounter; Y93.E5 Activity, floor mopping and cleaning; Y92.009 Unspecified place in unspecified non-institutional (private) residence as the place of occurrence of the external cause; Y99.8 Other external cause status; F10.282 Alcohol dependence with alcohol-induced sleep disorder; D64.9 Anemia, unspecified; J44.9 Chronic obstructive pulmonary disease, unspecified; K21.9 Gastro-esophageal reflux disease without esophagitis; E78.2 Mixed hyperlipidemia; E55.9 Vitamin D deficiency, unspecified; F33.0 Major depressive disorder, recurrent, mild; F17.210 Nicotine dependence, cigarettes, uncomplicated
CPT/HCPCS: 29881; J0171; J0690; J1100; J2250; J2405; J2795; J3010

== ENCOUNTER 2022-03-19 07:48 | Outpatient (RCR) | payer OTHER, SELFPAY | END 2022-06-25 12:30 | disposition home or self-care (01) | LOC: HO.PT 07:48 | PROVIDERS: Visit Provider Physician Assistant | DX: S83.207A Unspecified tear of unspecified meniscus, current injury, left knee, initial encounter (principal) | CPT/HCPCS: 97161 ==

== ENCOUNTER → 2022-06-15 14:45 | Outpatient (BNVA) | payer OTHER, SELFPAY | PROVIDERS: PCP Internal Medicine; Visit Provider Physician Assistant | DX: S83.207D Unspecified tear of unspecified meniscus, current injury, left knee, subsequent encounter (principal) | CPT/HCPCS: 20610; 99212; J1040 ==

== ENCOUNTER 2023-01-14 11:00 | Outpatient (REF) | payer OTHER, SELFPAY ==
--- NOTE | ~2023-01-14 | XR_ITS ---
EXAMINATION: BILATERAL STANDING KNEES, LEFT KNEE, RIGHT KNEE CLINICAL INFORMATION: Bilateral knee pain COMPARISON: 01/25/2022 TECHNIQUE: Single standing view both knees, 2 additional views left knee, 4 additional views right knee FINDINGS: The right knee appears unremarkable with preservation of joint spaces. No chondrocalcinosis, no fractures, no significant joint effusion is present. Again seen is a exostosis at the proximal aspect of the medial femoral condyle, unchanged from prior On the left, there is narrowing of the medial compartment with some sclerosis of the medial femoral condyle and medial tibial plateau. A large osteophyte is noted at the superior aspect of the patella. No significant joint effusion. No fractures or chondrocalcinosis. XR/XR knee standing BI IMPRESSION: 1. Unremarkable right knee aside from calcification along the medial femoral condyle. 2. Mild degenerative changes left knee as described above.
--- NOTE | ~2023-01-14 | XR_ITS ---
EXAMINATION: BILATERAL STANDING KNEES, LEFT KNEE, RIGHT KNEE CLINICAL INFORMATION: Bilateral knee pain COMPARISON: 01/25/2022 TECHNIQUE: Single standing view both knees, 2 additional views left knee, 4 additional views right knee FINDINGS: The right knee appears unremarkable with preservation of joint spaces. No chondrocalcinosis, no fractures, no significant joint effusion is present. Again seen is a exostosis at the proximal aspect of the medial femoral condyle, unchanged from prior On the left, there is narrowing of the medial compartment with some sclerosis of the medial femoral condyle and medial tibial plateau. A large osteophyte is noted at the superior aspect of the patella. No significant joint effusion. No fractures or chondrocalcinosis. XR/XR knee LT 2V IMPRESSION: 1. Unremarkable right knee aside from calcification along the medial femoral condyle. 2. Mild degenerative changes left knee as described above.
== END 2023-01-14 11:01 | disposition home or self-care (01) ==
LOC: HO.HOSX 11:00
PROVIDERS: Visit Provider Physician Assistant
DX: M25.562 Pain in left knee (principal)
CPT/HCPCS: 20610; 73560; 73565; 99212; J1040

== ENCOUNTER 2023-01-17 08:45 | Emergency (ER) | payer OTHER, SELFPAY ==
--- NOTE | ~2023-01-17 | XR_ITS ---
EXAMINATION: BILATERAL STANDING KNEES, LEFT KNEE, RIGHT KNEE CLINICAL INFORMATION: Bilateral knee pain COMPARISON: 01/25/2022 TECHNIQUE: Single standing view both knees, 2 additional views left knee, 4 additional views right knee FINDINGS: The right knee appears unremarkable with preservation of joint spaces. No chondrocalcinosis, no fractures, no significant joint effusion is present. Again seen is a exostosis at the proximal aspect of the medial femoral condyle, unchanged from prior On the left, there is narrowing of the medial compartment with some sclerosis of the medial femoral condyle and medial tibial plateau. A large osteophyte is noted at the superior aspect of the patella. No significant joint effusion. No fractures or chondrocalcinosis. XR/XR knee RT 4V IMPRESSION: 1. Unremarkable right knee aside from calcification along the medial femoral condyle. 2. Mild degenerative changes left knee as described above.
[2023-01-17 08:46] VITALS: BP 129/79; PULSE 90; RESP 18; TEMP 36.7; O2SAT 98; BMI 27.3
--- NOTE | 2023-01-17 09:08 | ED_ITS ---
HPI - Extremity Problem General Chief complaint: Extremity Problem Stated complaint: Right leg pain Time Seen by Provider: 01/17/23 09:06 Source: patient, RN notes reviewed and old records reviewed Mode of arrival: ambulatory History of Present Illness HPI Narrative: 57-year-old female with a past medical history of ETOH abuse, anemia, COPD, GERD, anxiety, HLD, left meniscal tear s/p cortisone injection on 01/14/23 at orthopedic office, presenting to the ED complaining acute on chronic right knee pain. Reports recurrent frequent falls over the past year due to knees giving out. States most recent fall about 3 weeks ago onto both knees, denies head trauma or LOC, states when saw orthopedics they did not evaluate right knee. Denies more recent injury/fall or trauma, numbness, tingling, weakness, recent travel, history of clots. Has been taking Tylenol and ibuprofen without relief MD Complaint: extremity pain Related Data Previous Rx's Medication Instructions Recorded albuterol sulfate 90 mcg/actuation 2 puff inhalation Q6H PRN 05/05/21 aerosol inhaler shortness of breath or wheezing 30 days #6.7 grams magnesium citrate 150 ml PO DAILY #296 mL 05/07/21 fluticasone propionate 100 1 inh PO BID #60 ea 10/04/21 mcg/actuation blister powder for inhalation (Flovent Diskus) loratadine 10 mg tablet (Allergy 10 mg PO DAILY #30 tabs 01/01/22 Relief (loratadine)) buspirone 7.5 mg tablet 7.5 mg PO BID 90 days #180 tabs 02/08/22 lactulose 10 gram/15 mL oral 10 g (15 mL) PO BEDTIME PRN 02/08/22 solution constipation 15 days #225 mL walker #1 ea 03/12/22 hydrocodone 5 mg-acetaminophen 325 1 tab PO Q8H PRN pain 7 days #21 03/14/22 mg tablet tabs cyclobenzaprine 10 mg tablet 10 mg PO BEDTIME PRN muscle spasm 07/16/22 30 days #30 tabs docusate sodium 100 mg capsule 100 mg PO DAILY PRN constipation 07/16/22 90 days #90 caps ferrous sulfate 325 mg (65 mg 325 mg PO DAILY 90 days #90 tabs 07/16/22 iron) tablet,delayed release atorvastatin 80 mg tablet 80 mg PO BEDTIME 90 days #90 tabs 03/09/23 escitalopram oxalate 20 mg tablet 20 mg PO DAILY 90 days #90 tabs 10/04/22 fenofibrate 54 mg tablet 54 mg PO DAILY 90 days #90 tabs 10/04/22 gabapentin 600 mg tablet 600 mg PO TID #270 tabs 10/04/22 omeprazole 20 mg capsule,delayed 20 mg PO DAILY 90 days #90 caps 10/04/22 release lisinopril 5 mg tablet 5 mg PO DAILY 90 days #90 tabs 12/09/22 amlodipine 10 mg tablet 10 mg PO DAILY 90 days #90 tabs 12/18/22 ibuprofen 800 mg tablet 800 mg PO TID PRN fever or pain 30 12/18/22 days #90 tabs quetiapine 200 mg tablet 200 mg PO BEDTIME 90 days #90 tabs 12/18/22 ropinirole 2 mg tablet 2 mg PO BEDTIME 90 days #90 tabs 12/18/22 cholecalciferol (vitamin D3) 25 25 mcg PO DAILY 90 days #90 caps 12/20/22 mcg (1,000 unit) capsule diclofenac sodium 1 % topical gel 2 g topical QID PRN pain (scale 01/17/23 score 1-3) #100 grams ketorolac 10 mg tablet 10 mg PO TID PRN pain 5 days #15 01/17/23 tabs Allergies Allergy/AdvReac Type Severity Reaction Status Date / Time No Known Allergies Allergy Verified 01/14/23 09:23 Review of Systems Review of Systems: Constitutional: No Fever, No Chills ENT/Mouth: No Ear Pain, No Nasal Congestion, No sore throat, No Rhinorrhea, No Swallowing Difficulty Cardiovascular: No Chest Pain, No SOB Respiratory: No Cough Gastrointestinal: No Nausea, No Vomiting, No Abdominal pain Musculoskeletal: + joint pain, No Myalgias, No Joint Swelling Skin: No Skin Lesions, No rash Neuro: No Weakness, No Numbness, No Paresthesias Yes all other systems are reviewed and are negative Constitutional: Constitutional: Reports as per [facility] Past Medical History Attestation statement: The following information was validated with the patient. 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 Mother Stroke Diabetes Substance use disorder Social History Social History Housing: Apartment Alcohol intake: former Patient Tobacco Use Status: Current everyday Tobacco user Tobacco use type: Cigarette Cigarettes Per Day: 4 e-Cigarette/Vaping Use: Never Used Second Hand Smoke Exposure: No service: No Current occupational status: employed Current occupational exposures/hazards: No Gender identity: Female Physical Exam Vital Signs: Vital Signs: Last Vital Signs Temp 98.0 F 01/17/23 08:46 Pulse 84 01/17/23 10:52 Resp 18 01/17/23 10:52 BP 125/74 01/17/23 10:52 Pulse Ox 99 01/17/23 10:52 O2 Del Method Room Air 01/17/23 10:52 BMI result Body Mass Index 27.3 Const: General: cooperative, healthy appearing and no acute distress Orientation/consciousness: patient oriented x3 Limitations: no limitations HEENT: Head: Yes normal to inspection and Yes atraumatic Ears: hearing grossly normal bilaterally General nose exam: Normal external nose present Face and sinus: Yes normal facial exam Eyes: General: appearance normal, both eyes and all related structures EOM: EOMs intact bilaterally Neck: Neck: Yes normal visual inspection and Yes no meningeal signs Resp: Effort & Inspection: normal respiratory effort and no respiratory distress Cardio: Rate: regular rate Heart sounds: S1 normal heart sound present and S2 normal heart sound present Peripheral pulses: dorsalis pedis present Skin: Rashes: no rashes Wounds: no wounds Neuro: General: patient oriented x3, tone normal and no meningeal signs Gait exam (Neuro): Normal gait present Extrem: Other: No appreciable knee swelling bilaterally, no erythema or warmth + tenderness apply patient to right posterior knee. No fluctuance/induration. No pitting edema. Neurovascular intact distally. Full ROM limited secondary to pain General: Yes normal to inspection Course Course Course Narrative: XR knee RT 4V IMPRESSION: 1.? Unremarkable right knee aside from calcification along the medial femoral condyle. 2.? Mild degenerative changes left knee as described above. Results discussed with patient including worrisome signs and symptoms and strict return precautions, and when to return to the emergency department. They verbalized understanding and feel safe for discharge at this time. Medications Administered Discontinued Medications Generic Name Dose Route Start Last Admin Trade Name Christy PRN Reason Stop Dose Admin Ketorolac Tromethamine 30 mg 01/17/23 09:40 01/17/23 10:02 Ketorolac Tromethamine 30 Mg/Ml Vial IM 01/17/23 09:41 30 mg ONCE ONE Administration Medical Decision Making Medical Decision Making MDM Narrative: 57-year-old female with a past medical history of ETOH abuse, anemia, COPD, GERD, anxiety, HLD, left meniscal tear s/p cortisone injection on 01/14/23 at orthopedic office, presenting to the ED complaining acute on chronic right knee pain. On exam vital signs stable, NAD, nontoxic appearing, mild tenderness to right posterior knee, no appreciable deformity, warmth or erythema. Neurovascular intact distally. Ambulating with steady gait in the ED. Concern for osteoarthritis vs tendon/ligamental injury. Lower suspicion for fracture. Low suspicion for septic joint/arthritis, DVT Plan: X-rays, IM Toradol Please refer to course for remaining clinical decision making, interpretation of labs/imaging results, and discussions with consultants and/or family members. Differential Diagnosis Differential Diagnoses: The differential diagnosis associated with the presentation includes As above Admission/Observation Consideration of admission/observation: Escalation of care including admission/observation considered Lab Data [facility] Lab Attestation statement: I reviewed the patient's lab results. Radiology Impression Discussion of test interpretation with radiology: I have reviewed the radiologist's reading. External Record Review External record reviewed: Inpatient record, Office record, Outpatient record, Prior outpatient labs, Prior outpatient radiology, Primary care record and Outside ED record Tests considered The following testing was considered but not selected: As above Discharge Plan Discharge Clinical Impression: Chronic pain of right knee Patient Disposition: Home, Self-Care Instructions: Knee Pain (ED) Additional Instructions: Your x-ray shows some calcifications along her medial few more condyle, as well it is arthritic changes You need to follow-up with orthopedics and her doctor You may need an MRI outpatient if pain continues Ketorolac as an anti-inflammatory/pain medication, take with food. Do not take both ketorolac, ibuprofen/Motrin or leave as they are similar medication, choose 1 Diclofenac as a topical anti-inflammatory pain medication, apply to painful joints If area begins look infected, pain is unbearable return to the ED Prescriptions: New diclofenac sodium 1 % gel 2 g topical QID PRN (Reason: pain (scale score 1-3)) Qty: 100 0RF Rx Instructions: apply to single elbow, wrist or hand; for hand includes palm/fingers/back of hand ketorolac 10 mg tablet 10 mg PO TID PRN (Reason: pain) 5 Days Qty: 15 0RF No Action albuterol sulfate 90 mcg/actuation HFA aerosol inhaler 2 puff inhalation Q6H PRN (Reason: shortness of breath or wheezing) 30 Days Qty: 6.7 0RF Flovent Diskus 100 mcg/actuation blister with device 1 inh PO BID Qty: 60 3RF docusate sodium 100 mg capsule 100 mg PO DAILY PRN (Reason: constipation) 90 Days Qty: 90 3RF cyclobenzaprine 10 mg tablet 10 mg PO BEDTIME PRN (Reason: muscle spasm) 30 Days Qty: 30 6RF ferrous sulfate 325 mg (65 mg iron) tablet,delayed release (DR/EC) 325 mg PO DAILY 90 Days Qty: 90 1RF escitalopram oxalate 20 mg tablet 20 mg PO DAILY 90 Days Qty: 90 3RF atorvastatin 80 mg tablet 80 mg PO BEDTIME 90 Days Qty: 90 1RF fenofibrate 54 mg tablet 54 mg PO DAILY 90 Days Qty: 90 1RF omeprazole 20 mg capsule,delayed release(DR/EC) 20 mg PO DAILY 90 Days Qty: 90 1RF gabapentin 600 mg tablet 600 mg PO TID Qty: 270 2RF lisinopril 5 mg tablet 5 mg PO DAILY 90 Days Qty: 90 3RF amlodipine 10 mg tablet 10 mg PO DAILY 90 Days Qty: 90 1RF ibuprofen 800 mg tablet 800 mg PO TID PRN (Reason: fever or pain) 30 Days Qty: 90 6RF quetiapine 200 mg tablet 200 mg PO BEDTIME 90 Days Qty: 90 1RF ropinirole 2 mg tablet 2 mg PO BEDTIME 90 Days Qty: 90 1RF Rx Instructions: administer 1-3 hours before bedtime cholecalciferol (vitamin D3) 25 mcg (1,000 unit) capsule 25 mcg PO DAILY 90 Days Qty: 90 3RF hydrocodone-acetaminophen 5-325 mg tablet 1 tab PO Q8H PRN (Reason: pain) 7 Days Qty: 21 0RF Rx Instructions: Partial Fill upon patient request. magnesium citrate Solution 150 ml PO DAILY Qty: 296 0RF Rx Instructions: Drink entire bottle in the morning for cleanout loratadine [Allergy Relief (loratadine)] 10 mg tablet 10 mg PO DAILY Qty: 30 0RF lactulose 10 gram/15 mL solution 10 g PO BEDTIME PRN (Reason: constipation) 15 Days Qty: 225 0RF buspirone 7.5 mg tablet 7.5 mg PO BID 90 Days Qty: 180 0RF (DME) [facility] See Rx Instructions .ROUTE .MEDSUPPLY Qty: 1 0RF Rx Instructions: Folding front wheeled walker Referrals: [facility] [place] [facility] [Provider Group] Yelena Martinez MD [Primary Care Provider] - Interventions: ED Discharge Assessment Last Done: 01/17/23 11:10 Discharge Date/Time: 01/17/23 11:10
[2023-01-17] MEDS: Ketorolac Tromethamine 30 MG/ML VIAL IM (10:02)
--- NOTE | 2023-01-17 10:22 | PC.NURSE ---
Patient ambulate to bathroom independently, noted to favor left lower extremity at this time.
[2023-01-17 10:52] VITALS: BP 125/74; PULSE 84; RESP 18; O2SAT 99
== END 2023-01-17 11:10 | disposition home or self-care (01) ==
PROVIDERS: Emergency Provider Student in an Organized Health Care Education/Training Program; PCP Internal Medicine
DX: G89.29 Other chronic pain (principal); M25.561 Pain in right knee; R29.6 Repeated falls; F17.210 Nicotine dependence, cigarettes, uncomplicated
CPT/HCPCS: 73564; 96372; 99284; J1885